=== PATIENT | male | born 1950 | race Caucasian/White ===

== ENCOUNTER 2025-04-07 02:46 | Emergency (ER) | payer SELFPAY ==
[~2025-04-07] VITALS: Ht 177.8 cm; Wt 79.4 kg
[2025-04-07 02:47] VITALS: PULSE 102; RESP 20; TEMP 98.4
[2025-04-07] MEDS: SODIUM CHLORIDE 0.9% 1000ML 1,000 ML IV STA (03:08)
[2025-04-07 03:10] LABS: BASOPHILS % 0.4 % (0.0-1.0); EOSINOPHILS % 36.9 % (0.0-6.0); LYMPHOCYTES % 11.9 % (18.0-39.1); MONOCYTES % 10.0 % (4.4-11.3); NEUTROPHILS % 40.4 % (38.7-80.0); RED CELL DISTRIBUTION WIDTH 15.0 % (11.7-14.4)
[2025-04-07] MEDS: FAMOTIDINE 20 MG/2 ML VIAL IV STA (03:27)
[2025-04-07] MEDS: METHYLPREDNISOLONE SOD SUCC 125 MG/2ML VIAL IV STA (03:28)
[2025-04-07] MEDS: DIPHENHYDRAMINE HCL INJ 50 MG/ML VIAL IV ONE (03:28)
[2025-04-07 03:33] LABS: EST GLOMERULAR FILTRATION RATE 56.0 ML/MIN (>=60)
[2025-04-07 04:04] VITALS: BP 147/60; PULSE 108; RESP 17; TEMP 98; O2SAT 100
[2025-04-07] MEDS ORDERED: HYDROXYZINE HCL25 MG PO (04:25)
== END 2025-04-07 05:13 | disposition home or self-care (01) ==
LOC: ER 02:51
DX: L29.9 Pruritus, unspecified (principal); R21 Rash and other nonspecific skin eruption; I10 Essential (primary) hypertension
CPT/HCPCS: 36415; 80053; 82550; 83690; 83880; 84484; 85025; 93005; 99284; J1200; J1308; J2919; J7030